=== PATIENT | male | born 1955 | race Asian ===

== ENCOUNTER 2021-12-21 20:45 | Inpatient (IN) | payer MEDICARE ==
[~2021-12-21] VITALS: Ht 153 cm; Wt 76.8 kg
[2021-12-21 22:14] LABS: Basophils # (auto) 0 10 ^3/uL (0-0.2); Basophils % (auto) 0.5 % (0.0-2.0); Eosinophils # (auto) 0.5 10 ^3/uL (0-0.8); Eosinophils % (auto) 7.6 % (0.0-7.0); Hematocrit 43.7 % (41.0-53.0); Hemoglobin 13.6 g/dL (13.5-17.5); Lymphocytes # (auto) 2.3 10 ^3/uL (0.4-5.4); Lymphocytes % (auto) 35.2 % (10.0-50.0); Mean Corpuscular Hemoglobin 23.6 pg (28.0-32.0); Mean Corpuscular Hgb Conc. 31.1 g/dL (32.0-36.0); Mean Corpuscular Volume 75.8 fL (80.0-100.0); Monocytes # (auto) 0.7 10 ^3/uL (0-1.3); Monocytes % (auto) 10.5 % (0.0-12.0); Neutrophils % (auto) 46.2 % (37.0-80.0); Nucleated Red Blood Cells % 0.1 %; Red Blood Cells 5.77 10^6/uL (4.5-5.90); Red Cell Distribution Width 15.6 % (11.8-14.3); White Blood Cell 6.5 10^3/uL (4.4-10.8)
[2021-12-21 22:30] LABS: INR 1.01 (0.9-1.15); Partial Thromboplastin Time 30.6 sec (23.6-33.0)
[2021-12-21 22:35] LABS: Albumin 3.8 g/dL (3.4-5.0); Calcium 8.9 mg/dL (8.5-10.1); Potassium 4.5 mmol/L (3.5-5.1)
[2021-12-21 22:36] LABS: Urine Bacteria NONE SEEN /hpf (None Seen); Urine Blood Negative /uL (Negative); Urine Specific Gravity 1.013 (1.001-1.035); Urine WBC <1 /hpf (0 - 3)
[2021-12-21 22:40] LABS: BUN/Creatinine Ratio 15.7; Bilirubin, Total 0.4 mg/dL (0.2-1.0)
[2021-12-22] MEDS ORDERED: ATORVASTATIN 20 MG TAB PO ONE (07:00)
[2021-12-22] MEDS ORDERED: CLOPIDOGREL BISULFATE 75 MG TAB PO ONE (07:00)
[2021-12-22] MEDS ORDERED: ONDANSETRON HCL 4 MG/2 ML VIAL IV PRN (11:30)
[2021-12-22] MEDS: SODIUM CHLORIDE 0.9% 1,000 ML IV SCH (12:39)
[2021-12-22 17:23] VITALS: BP 123/98
[2021-12-22 17:43] VITALS: BP 132/70
[2021-12-22 22:06] VITALS: BP 159/79
[2021-12-23] VITALS (7 sets, daily range): BP systolic 126–159; BP diastolic 51–83
[2021-12-23] MEDS ORDERED: CYCL-839 PO (01:35)
[2021-12-23] MEDS ORDERED: ATOR10TA PO (01:35)
[2021-12-23] MEDS ORDERED: APIX5TAB PO (01:35)
[2021-12-23] MEDS: SODIUM CHLORIDE 0.9% 1,000 ML IV SCH ×2 (04:10→06:36)
[2021-12-23 07:09] LABS: Basophils # (auto) 0 10 ^3/uL (0-0.2); Basophils % (auto) 0.4 % (0.0-2.0); Eosinophils # (auto) 0.5 10 ^3/uL (0-0.8); Eosinophils % (auto) 8.3 % (0.0-7.0); Hematocrit 40.1 % (41.0-53.0); Lymphocytes # (auto) 1.8 10 ^3/uL (0.4-5.4); Lymphocytes % (auto) 29.8 % (10.0-50.0); Mean Corpuscular Hemoglobin 24.7 pg (28.0-32.0); Mean Corpuscular Hgb Conc. 32.6 g/dL (32.0-36.0); Mean Corpuscular Volume 75.8 fL (80.0-100.0); Monocytes # (auto) 0.5 10 ^3/uL (0-1.3); Monocytes % (auto) 8.8 % (0.0-12.0); Neutrophils # (auto) 3.1 10 ^3/uL (1.6-8.6); Neutrophils % (auto) 52.7 % (37.0-80.0); Nucleated Red Blood Cells % 0.1 %; Red Blood Cells 5.29 10^6/uL (4.5-5.90); Red Cell Distribution Width 15.4 % (11.8-14.3)
[2021-12-23 07:26] LABS: Calcium 8.5 mg/dL (8.5-10.1)
[2021-12-23 07:41] LABS: Albumin 3.4 g/dL (3.4-5.0); Bilirubin, Total 0.4 mg/dL (0.2-1.0); Total Protein 7.3 g/dL (6.4-8.2)
[2021-12-23] MEDS ORDERED: CLOPIDOGREL BISULFATE 75 MG TAB PO ONE (07:45)
[2021-12-23] MEDS: ATORVASTATIN 20 MG TAB PO SCH (09:37)
[2021-12-23] MEDS: ASPirin 81 mg TAB PO SCH (09:37)
[2021-12-23] MEDS: ENOXAPARIN SOD 40 MG/0.4 ML SYRINGE SC SCH (09:37)
[2021-12-23] MEDS ORDERED: IOHEXOL 350 MG/ML 100ML IJ ONE (14:57)
[2021-12-23] MEDS ORDERED: LISINOPRIL 10 MG TAB PO ONE (16:00)
[2021-12-23] MEDS ORDERED: NITROGLYCERIN 0.4 MG SL TAB SL PRN (16:00)
[2021-12-23] MEDS ORDERED: MORPHINE SULFATE INJ 2 MG/ml SYRG IV PRN (16:00)
[2021-12-24 05:00] VITALS: BP 157/62
[2021-12-24 06:37] LABS: Basophils # (auto) 0 10 ^3/uL (0-0.2); Eosinophils # (auto) 0.6 10 ^3/uL (0-0.8); Eosinophils % (auto) 8.5 % (0.0-7.0); Hematocrit 40.8 % (41.0-53.0); Hemoglobin 13.1 g/dL (13.5-17.5); Lymphocytes # (auto) 1.8 10 ^3/uL (0.4-5.4); Mean Corpuscular Hemoglobin 24.2 pg (28.0-32.0); Monocytes # (auto) 0.6 10 ^3/uL (0-1.3); Neutrophils # (auto) 3.8 10 ^3/uL (1.6-8.6)
[2021-12-24 06:41] LABS: Basophils % (auto) 0.4 % (0.0-2.0); Lymphocytes % (auto) 26.9 % (10.0-50.0); Mean Corpuscular Volume 75.5 fL (80.0-100.0); Monocytes % (auto) 8.8 % (0.0-12.0); Neutrophils % (auto) 55.4 % (37.0-80.0); Nucleated Red Blood Cells % 0.1 %; Red Blood Cells 5.41 10^6/uL (4.5-5.90); Red Cell Distribution Width 15.3 % (11.8-14.3); White Blood Cell 6.9 10^3/uL (4.4-10.8)
[2021-12-24 06:42] LABS: INR 0.99 (0.9-1.15); Partial Thromboplastin Time 29.6 sec (23.6-33.0)
[2021-12-24 07:01] LABS: Calcium 8.7 mg/dL (8.5-10.1)
[2021-12-24 07:30] VITALS: BP 135/61
[2021-12-24] MEDS: ENOXAPARIN SOD 40 MG/0.4 ML SYRINGE SC SCH (07:44)
[2021-12-24 09:00] VITALS: BP 135/61
[2021-12-24] MEDS: ATORVASTATIN 20 MG TAB PO SCH (09:41)
[2021-12-24] MEDS: ASPirin 81 mg TAB PO SCH (09:41)
[2021-12-24] MEDS: LISINOPRIL 10 MG TAB PO SCH (09:42)
[2021-12-24 12:47] VITALS: BP 151/58
[2021-12-24] MEDS ORDERED: CLOPIDOGREL BISULFATE 75 MG TAB PO ONE (16:30)
[2021-12-24 16:47] VITALS: BP 153/75
[2021-12-24 22:00] VITALS: BP 111/69
[2021-12-25 05:00] VITALS: BP 152/60
[2021-12-25 07:50] VITALS: BP 151/63
[2021-12-25] MEDS: ASPirin 81 mg TAB PO SCH (09:13)
[2021-12-25] MEDS: ATORVASTATIN 20 MG TAB PO SCH (09:13)
[2021-12-25] MEDS: LISINOPRIL 10 MG TAB PO SCH (09:14)
[2021-12-25] MEDS: ENOXAPARIN SOD 40 MG/0.4 ML SYRINGE SC SCH (09:14)
[2021-12-25] MEDS ORDERED: CLOPIDOGREL BISULFATE 75 MG TAB PO SCH (10:00)
[2021-12-25 12:19] VITALS: BP 132/64
[2021-12-25 16:48] VITALS: BP 150/65
[2021-12-25 22:00] VITALS: BP 132/54
[2021-12-26 05:00] VITALS: BP 117/52
[2021-12-26 08:00] VITALS: BP 114/52
[2021-12-26 08:05] VITALS: BP 114/52
[2021-12-26] MEDS: ATORVASTATIN 20 MG TAB PO SCH (09:39)
[2021-12-26] MEDS: LISINOPRIL 10 MG TAB PO SCH (09:39)
[2021-12-26] MEDS: ASPirin 81 mg TAB PO SCH (09:39)
[2021-12-26] MEDS: ENOXAPARIN SOD 40 MG/0.4 ML SYRINGE SC SCH (09:40)
[2021-12-26] MEDS ORDERED: ACETAMINOPHEN 325 MG TAB PO PRN (11:00)
[2021-12-26 12:45] VITALS: BP 132/60
[2021-12-26 16:23] VITALS: BP 146/66
[2021-12-26 22:00] VITALS: BP 138/65
[2021-12-27] VITALS (8 sets, daily range): BP systolic 99–145; BP diastolic 2–74
[2021-12-27] MEDS: ATORVASTATIN 20 MG TAB PO SCH (09:36)
[2021-12-27] MEDS: LISINOPRIL 10 MG TAB PO SCH (09:36)
[2021-12-27] MEDS: ASPirin 81 mg TAB PO SCH (09:36)
[2021-12-27] MEDS: ENOXAPARIN SOD 40 MG/0.4 ML SYRINGE SC SCH (09:36)
[2021-12-27] MEDS ORDERED: LIDOCAINE 2%HCL (LOCAL ANESTH.) INJ 10ml MDV ONE (15:29)
[2021-12-27] MEDS ORDERED: PHENYLEPHRINE HCL 10 MG/ML VL ONE (15:30)
[2021-12-27] MEDS ORDERED: GLYCOPYRROLATE 0.2 MG/ML 1ML VIAL ONE (15:30)
[2021-12-27] MEDS ORDERED: SODIUM CHL 0.9% 50 ML ONE (15:31)
[2021-12-27] MEDS ORDERED: ANGIOMAX 250 MG VIAL IV ONE (15:31)
[2021-12-27] MEDS ORDERED: ASPirin 325 MG TAB ONE (16:19)
[2021-12-27] MEDS ORDERED: CLOPIDOGREL 300 MG TAB ONE (16:19)
[2021-12-27] MEDS ORDERED: SODIUM CHLORIDE 0.9% 500 ML IV ONE (16:45)
[2021-12-28 05:00] VITALS: BP 93/55
[2021-12-28 09:00] VITALS: BP 100/37
[2021-12-28] MEDS: ASPirin 81 mg TAB PO SCH (09:59)
[2021-12-28] MEDS: LISINOPRIL 10 MG TAB PO SCH (10:00)
[2021-12-28] MEDS: ATORVASTATIN 20 MG TAB PO SCH (10:00)
[2021-12-28] MEDS ORDERED: CLOPIDOGREL BISULFATE 75 MG TAB PO SCH (10:00)
[2021-12-28 13:00] VITALS: BP 104/43
[2021-12-28] MEDS ORDERED: CLOP75TA70 PO (14:59)
[2021-12-28] MEDS ORDERED: ASPI-325 PO (14:59)
[2021-12-28] MEDS ORDERED: ATOR20TA50 PO (14:59)
[2021-12-28] MEDS ORDERED: LISI-716 PO (14:59)
[2021-12-28 17:02] VITALS: BP 103/45
[2021-12-28 17:05] VITALS: BP 103/45
== END 2021-12-28 19:16 | disposition home or self-care (01) | DRG 34 ==
LOC: ER 20:45 → OVERFLOW 12-22 11:32 → WEST WING 12-22 17:10 → OBSVTOIN 12-23 15:48 → TELE-WESTW 12-23 15:49
PROVIDERS: ADMIT Internal Medicine; ATTEND Internal Medicine
PROC: 037K3DZ Dilation of Right Internal Carotid Artery with Intraluminal Device, Percutaneous Approach (ICD-10-PCS; principal; 2021-12-27)
PROC: B315YZZ Fluoroscopy of Bilateral Common Carotid Arteries using Other Contrast (ICD-10-PCS; 2021-12-27)
PROC: B31 Imaging, Upper Arteries, Fluoroscopy (ICD-10-PCS; 2021-12-27)
PROC: B318YZZ Fluoroscopy of Bilateral Internal Carotid Arteries using Other Contrast (ICD-10-PCS; 2021-12-27)
PROC: B31CYZZ Fluoroscopy of Bilateral External Carotid Arteries using Other Contrast (ICD-10-PCS; 2021-12-27)
DX: I65.21 Occlusion and stenosis of right carotid artery (principal); I63.511 Cerebral infarction due to unspecified occlusion or stenosis of right middle cerebral artery; G81.94 Hemiplegia, unspecified affecting left nondominant side; G47.30 Sleep apnea, unspecified; R91.1 Solitary pulmonary nodule; G47.10 Hypersomnia, unspecified; E78.5 Hyperlipidemia, unspecified; R91.8 Other nonspecific abnormal finding of lung field; M48.02 Spinal stenosis, cervical region; F17.200 Nicotine dependence, unspecified, uncomplicated; Z20.822 Contact with and (suspected) exposure to COVID-19; Z79.01 Long term (current) use of anticoagulants; Z79.02 Long term (current) use of antithrombotics/antiplatelets; Z79.82 Long term (current) use of aspirin; Z79.899 Other long term (current) drug therapy; Z86.73 Personal history of transient ischemic attack (TIA), and cerebral infarction without residual deficits
CPT/HCPCS: 36223; 36224; 36415; 37215; 70450; 70496; 70498; 70551; 71045; 71250; 72141; 80048; 80053; 80061; 81001; 82306; 84443; 84484; 85025; 85610; 85730; 93005; 93306; 93886; 94660; 95819; 96360; 96361; 97110; 97163; 99152; 99153; 99291; G0378; J2001

== ENCOUNTER → 2022-02-14 | Outpatient (CLI) | payer MEDICARE, BC ==
[~2022-02-14] VITALS: Ht 160 cm; Wt 65.8 kg
[~2022-02-14] MED LIST: ASPI-325 PO; ATOR20TA50 PO; CLOP75TA70 PO; LISI-716 PO
== END | disposition home or self-care (01) ==
LOC: Rad HDHVI 12:56
PROVIDERS: ATTEND Internal Medicine Cardiovascular Disease
DX: I10 Essential (primary) hypertension (principal); E78.5 Hyperlipidemia, unspecified; I25.10 Atherosclerotic heart disease of native coronary artery without angina pectoris; Z95.5 Presence of coronary angioplasty implant and graft
CPT/HCPCS: 78452; 93017; 93880; 96374; A9500